=== PATIENT | female | born 1955 | race African-American/Black ===

== ENCOUNTER → 2021-12-15 | Outpatient (CLI) | payer MEDICARE ==
[~2021-12-15] MED LIST: IOPAMIDOL 370 MG/ML 200 ML INFUS..BTL INJ ONE; METOPROLOL TARTRATE INJ 1 MG/ML VIAL ONE; NITROGLYCERIN 0.4 MG SUBL ONE; SODIUM CHLORIDE 0.9% 100 ML ONE; SODIUM CHLORIDE 0.9% 50ML 50 ML ONE
[2021-12-15 08:47] LABS: CREATININE, SERUM 0.83 mg/dL (0.57-1.11)
== END ==
LOC: CT 07:28
PROVIDERS: ATTEND Internal Medicine Cardiovascular Disease
DX: R07.9 Chest pain, unspecified (principal)
CPT/HCPCS: 36415; 82565; 84520; J7050; Q9967

== ENCOUNTER → 2021-12-20 | Outpatient (CLI) | payer MEDICARE ==
[~2021-12-20] MED LIST changes: +METOPROLOL TARTRATE 25 MG TAB ONE
== END ==
LOC: DX 08:19
PROVIDERS: ATTEND Internal Medicine Cardiovascular Disease
DX: R07.9 Chest pain, unspecified (principal); I10 Essential (primary) hypertension; I26.02 Saddle embolus of pulmonary artery with acute cor pulmonale; E66.01 Morbid (severe) obesity due to excess calories
CPT/HCPCS: 36569; 75574; J7050; Q9967